=== PATIENT | male | born 1945 | race Hispanic/Latino ===

== ENCOUNTER 2017-11-23 08:21 | Observation (INO) | payer OTHER, MEDICARE ==
[~2017-11-23] VITALS: Ht 172.7 cm; Wt 89.1 kg
[2017-11-23 08:57] LABS: BASOPHILS % (AUTO) 0.5 % (0.0-5.0); EOSINOPHILS % (AUTO) 3.1 % (0.0-8.0); HEMATOCRIT 44.4 % (42-54); MEAN CORPUSCULAR HEMOGLOBIN 31.7 pg (27.0-33.0); MEAN CORPUSCULAR HGB CONC 33.3 g/dL (32.0-36.0); MEAN CORPUSCULAR VOLUME 95.3 fL (79-99); MONOCYTES % (AUTO) 6.5 % (3.0-13.0); NEUTROPHILS % (AUTO) 68.9 % (40.0-77.0); PLATELET COUNT (AUTO) 180 K/uL (130-400); RED BLOOD CELL COUNT(AUTO) 4.66 MIL/uL (4.50-6.20); RED CELL DISTRIBUTION WIDTH 14.4 % (11.0-15.5); WHITE BLOOD COUNT (AUTO) 8.8 K/uL (4.8-10.8)
[2017-11-23 09:03] LABS: CREATININE 1.3 mg/dL (0.5-1.5); POTASSIUM 3.9 mmol/L (3.5-5.1)
[2017-11-23 09:05] LABS: INR 1.01 (0.85-1.15); PARTIAL THROMBOPLASTIN TIME 28.5 SEC (26.3-35.5); PROTHROMBIN TIME 10.6 SEC (9.6-11.6)
[2017-11-23 09:07] LABS: ALBUMIN 3.4 g/dL (3.5-5.0); BILIRUBIN,TOTAL 0.8 mg/dL (0.2-1.0); TOTAL PROTEIN, SERUM 7.6 g/dL (6.0-8.3)
[2017-11-23] MEDS ORDERED: IOHEXOL-350 75 ML VIAL IV ONE (10:06)
[2017-11-23] MEDS ORDERED: ASPIRIN 325 MG TABLET ONE (10:33)
[2017-11-23] MEDS ORDERED: SODIUM CHLORIDE 0.9% 10 ML VIAL IVP PRN (16:00)
[2017-11-23 16:42] VITALS: BP 198/108
[2017-11-23] MEDS ORDERED: AMLO10TA6 PO (18:37)
[2017-11-23] MEDS ORDERED: METO-409 PO (18:37)
[2017-11-23] MEDS ORDERED: LISI40TA4 PO (18:37)
[2017-11-23 19:47] VITALS: BP 179/103
[2017-11-23] MEDS ORDERED: LABETALOL 20 MG/4 ML DISP.SYRIN IV PRN (21:45)
[2017-11-23] MEDS ORDERED: ENOXAPARIN SODIUM 40 MG/0.4 ML SYRINGE SQ SCH (22:30)
[2017-11-23 23:30] VITALS: BP 184/112
[2017-11-24 04:05] VITALS: BP 192/108
[2017-11-24 04:06] VITALS: BP 189/92
[2017-11-24] MEDS ORDERED: FAMOTIDINE 20MG TAB 20 MG TAB PO SCH (09:00)
[2017-11-24] MEDS ORDERED: ASPIRIN 325MG EC TAB 325 MG TABLET.DR PO SCH (09:00)
[2017-11-24] MEDS ORDERED: ATORVASTATIN CALCIUM 20 MG TABLET PO SCH (21:00)
== END 2017-11-24 07:25 | disposition left against medical advice (07) ==
LOC: EDH 08:21 → EDHIP 14:48 → INTOOBSV 14:48 → 2AH 16:32
PROVIDERS: ADMIT Internal Medicine; ATTEND Internal Medicine
DX: G45.9 Transient cerebral ischemic attack, unspecified (principal); I10 Essential (primary) hypertension; E78.5 Hyperlipidemia, unspecified; R56.9 Unspecified convulsions; Z86.73 Personal history of transient ischemic attack (TIA), and cerebral infarction without residual deficits
CPT/HCPCS: 36415; 70450; 70496; 70498; 71045; 80053; 82550; 84484; 85025; 85610; 85730; 93005; 96372; 96374; 99285; G0378 ×17; J1650; Q9967